=== PATIENT | female | born 1975 | race Caucasian/White ===

== ENCOUNTER 2024-01-16 21:10 | Emergency (ER) | payer BC, SELFPAY ==
--- NOTE | ~2024-01-16 | XR_ITS ---
EXAM: XR elbow RT min 3V, XR humerus RT DATE: 01/16/2024 23:38 HISTORY: R elbow pain swelling . COMPARISON: None available. FINDINGS: Normal mineralization. No fracture or dislocation. No lytic or blastic lesion. Minimal deg enerative change at the elbow joint. Medial epicondylar enthesopathy. No erosion or periosteal change . Subcutaneous stranding along the medial aspect of the elbow. IMPRESSION: No acute osseous finding in the right humerus or elbow. Reviewed, dictated and finalized at location K. IMPRESSION: No acute osseous finding in the right humerus or elbow.
--- NOTE | ~2024-01-16 | US_ITS ---
Duplex Sonography of the right upper extremity: Indication: DVT Sagittal and transverse B-mode images as well as color-flow imaging were performed on the right inter nal jugular, subclavian, axillary, brachial, basilic, radial, ulnar, and cephalic veins. B-mode exam ination was done without and with compression in the transverse plane. There is good visualization o f the internal jugular, subclavian, axillary, brachial, and basilic veins. There is thrombosis of the brachial, basilic, cephalic veins, with echogenic thrombus. These vessels demonstrate areas of noncompressibility and absent flow. There is additional thrombus in the radial a nd ulnar veins. Remaining visualized venous structures are patent, with normal flow and compressibility. Impression: Acute thrombosis involving the brachial, basilic, cephalic, radial, and ulnar veins. Reviewed, dictated and finalized at location . Impression: Acute thrombosis involving the brachial, basilic, cephalic, radial, and ulnar v eins.
[2024-01-16 21:14] VITALS: BP 189/87; PULSE 105; RESP 15; TEMP 36.6; O2SAT 100
[2024-01-17 03:51] VITALS: BP 176/79; PULSE 92; RESP 15; O2SAT 100
--- NOTE | 2024-01-17 04:28 | ED.EXTPRO ---
HPI - Extremity Problem General Chief complaint: Extremity Problem,Nontraumatic <Luis Enrique García MD - Last Filed: 01/17/24 07:14> Stated complaint: R ARM SWELLING,WARMTH <Luis Enrique García MD - Last Filed: 01/17/24 07:14> Time Seen by Provider: 01/17/24 04:07 <Luis Enrique García MD - Last Filed: 01/17/24 07:14> History of Present Illness HPI Narrative: 48-year-old female with history of hypertension presenting to the emergency department right elbow pain and swelling. She has not injured her have any kind of trauma but states that she thinks he might have developed tennis or golf elbow number passive extremity. She does that she has some swelling and warmth medial to the elbow on the inner arm of the right upper extremity. Does not remitted any trauma or bug bites. It has been warm without any drainage. No systemic features such as fever, chills, cough or trouble breathing, chest pain. She was concerned that she could have developed a blood clot. No history of DVT or PE. Not on any blood thinner medications. Previously healthy. <Luis Enrique García MD - Last Filed: 01/17/24 07:14> Related Data Home medications: Home Medications Medication Instructions Recorded Confirmed cetirizine 10 mg tablet (Zyrtec) 10 mg PO DAILY 03/19/19 09/14/22 levonorgestrel 0.15 mg-ethinyl 1 tablet PO DAILY 09/11/20 09/14/22 estradiol 30 mcg tablets,3 mos pack(91) <Luis Enrique García MD - Last Filed: 01/17/24 07:14> Allergies/Adverse reactions: Allergies Allergy/AdvReac Type Severity Reaction Status Date / Time No Known Allergies Allergy Verified 09/13/23 10:19 <Luis Enrique García MD - Last Filed: 01/17/24 07:14> Review of Systems Review of Systems: As reviewed above in HPI <Luis Enrique García MD - Last Filed: 01/17/24 07:14> FOR[facility]LY [facility], [facility] Past Medical History Medical History: Medical History (Updated 01/17/24 @ 08:21 by Kathleen Dudley MD) Anxiety Current mild episode of major depressive disorder without prior episode Encounter for monitoring diuretic therapy Essential (primary) hypertension Gastroesophageal reflux disease without esophagitis H/O motion sickness <Luis Enrique García MD - Last Filed: 01/17/24 07:14> Family History Family History: Family History (Updated 01/17/24 @ 08:31 by Kathleen Dudley MD) Father , due to VTE Hypertension VTE (venous thromboembolism) Mother Hypertension Grandparent Hypertension <Luis Enrique García MD - Last Filed: 01/17/24 07:14> Social History Social History: Social History Smoking status: Never smoker Second hand tobacco smoke exposure: No Alcohol intake: never Substance use: never Substance use type: does not use Lack of Transportation: No Lack of Food: Never True Current Housing: I Have Housing Concerned About Future Housing: No Difficulty Paying Gas/Electric Bills: No Difficulty Paying for Meds: No Currently Unemployed: No Education: Bachelor's Degree Difficulty w/ Childcare or Family Care: No Living arrangements: alone Occupation/Education: occupation Additional occupation/education comments: landscaper Gender identity (if verbalized by the patient): Female Spiritual care concerns: No Agree to blood products: No <Luis Enrique García MD - Last Filed: 01/17/24 07:14> Exam Narrative: GENERAL: [Well-appearing, well-nourished, and in no acute distress.] HEAD: [Normocephalic, atraumatic.] EYES: [PERRLA and EOMI.] ENT: Nares clear, no rhinorrhea or epistaxis. Mucous membranes moist. NECK: Supple. CHEST: [Clear to auscultation. No respiratory distress.] HEART: [Regular rate and rhythm]. No murmur heard. [Normal peripheral pulses.] ABDOMEN: [Soft, nondistended], [nontender], [No rigidity or guarding] EXTREMITIES: The i
[2024-01-17 05:07] LABS: Basophils Percent Auto 0.4 % (0.2-1.2); Eosinophils Absolute Auto 0.2 K/mm3 (0-0.3); Eosinophils Percent Auto 1.4 % (0-4.4); Hematocrit 28.8 % (37.0-47.0); Hemoglobin 7.8 g/dL (12.0-15.0); Immature Granulocyte Absolute 0.05 K/mm3 (0.00-0.031); Immature Granulocyte Percent A 0.4 % (0-0.5); Lymphocytes Absolute Auto 1.76 K/mm3 (0.9-3.2); Lymphocytes Percent Auto 15.5 % (18.3-44.2); Mean Corpuscular HGB Conc 27.1 g/dl (32-36); Mean Corpuscular Hemoglobin 17.4 pg (26-34); Mean Corpuscular Volume 64.4 fl (80-100); Mean Platelet Volume 9.5 fl (7.4-10.4); Monocytes Absolute Auto 0.9 K/mm3 (0.1-0.6); Monocytes Percent Auto 7.6 % (2.6-8.5); Neutrophils Absolute Auto 8.5 K/mm3 (1.3-6.7); Neutrophils Percent Auto 74.7 % (45.5-73.1); Platelet Count Result 461 k/mm3 (150-375); Red Blood Count 4.47 M/mm3 (4.2-5.4); Red Cell Distribution Width 20.8 % (11.5-14.5); White Blood Count 11.4 K/mm3 (4.5-10.0)
[2024-01-17 05:24] LABS: D Dimer 1.45 ug/mL (<0.48)
[2024-01-17 05:29] LABS: Anion Gap 13 mmol/L (4-12); Blood Urea Nitrogen 15 mg/dL (7-17); Calcium 9.2 mg/dL (8.4-10.2); Carbon Dioxide 22 mmol/L (22-30); Chloride 100 mmol/L (98-107); Estimated CRCL calculation 104 ml/min; Estimated Glomerular Filt Rate > 60; Glucose 118 mg/dL (65-110); Potassium 4.1 mmol/L (3.4-5.0); Sodium 135 mmol/L (137-145)
[2024-01-17 05:32] LABS: CRP 5.1 mg/dL (<1.0)
[2024-01-17 05:52] LABS: Platelet Estimate Increased (Adequate)
[2024-01-17 05:53] LABS: Anisocytosis 1+; Erythrocyte Sedimentation Rate 82 mm/hr (0-20); Ovalocytes 1+; Schistocytes None Seen
--- NOTE | 2024-01-17 07:20 | PC.NURSE ---
Assumed care of pt. pt right with edema & tenderness to A/C area that extends to bicep & lower arm. CMS intact. Pt rates pain 8, refusing any pain medication at this time. Continue to wait on US.
[2024-01-17] MEDS: RIVAROXABAN 15 MG TABLET PO (08:52)
[2024-01-17 08:55] VITALS: BP 169/86; PULSE 74; RESP 18; TEMP 36.6; O2SAT 98
--- NOTE | 2024-01-17 09:05 | PC.NURSE ---
pt refused pain med order. State she prefers not to take any pain meds at this time
== END 2024-01-17 09:06 | disposition home or self-care (01) ==
PROVIDERS: Emergency Provider Student in an Organized Health Care Education/Training Program; PCP Family Medicine
DX: I82.621 Acute embolism and thrombosis of deep veins of right upper extremity (principal); I10 Essential (primary) hypertension; K21.9 Gastro-esophageal reflux disease without esophagitis; F41.9 Anxiety disorder, unspecified; Z79.899 Other long term (current) drug therapy
CPT/HCPCS: 36415; 73060; 73080; 80048; 85025; 85380; 85652; 86140; 93971; 99284; A9270

== ENCOUNTER 2024-02-23 14:02 | Outpatient (CLI) | payer BC, SELFPAY ==
[2024-02-23 14:16] LABS: Basophils Absolute Auto 0.1 K/mm3 (0.0-0.1); Basophils Percent Auto 0.6 % (0.2-1.2); Eosinophils Absolute Auto 0.3 K/mm3 (0-0.3); Eosinophils Percent Auto 2.3 % (0-4.4); Hematocrit 34.9 % (37.0-47.0); Hemoglobin 9.6 g/dL (12.0-15.0); Immature Granulocyte Absolute 0.04 K/mm3 (0.00-0.031); Immature Granulocyte Percent A 0.3 % (0-0.5); Lymphocytes Absolute Auto 2.23 K/mm3 (0.9-3.2); Mean Corpuscular HGB Conc 27.5 g/dl (32-36); Mean Corpuscular Hemoglobin 19.1 pg (26-34); Mean Corpuscular Volume 69.5 fl (80-100); Mean Platelet Volume 9.5 fl (7.4-10.4); Monocytes Percent Auto 8.5 % (2.6-8.5); Neutrophils Absolute Auto 8.1 K/mm3 (1.3-6.7); Neutrophils Percent Auto 69.3 % (45.5-73.1); Platelet Count Result 405 k/mm3 (150-375); Red Blood Count 5.02 M/mm3 (4.2-5.4); Red Cell Distribution Width 22.6 % (11.5-14.5); White Blood Count 11.7 K/mm3 (4.5-10.0)
[2024-02-23 14:29] LABS: Anisocytosis 1+; Hypochromasia 1+; Microcytosis 1+ (NORMAL); Platelet Estimate Slightly Increased (Adequate); Schistocytes None Seen
[2024-02-23 18:34] LABS: Iron 101 ug/dL (37-170); Percent Iron Saturation 26 % (20-50)
[2024-02-23 18:36] LABS: Alanine Aminotransferase 86 U/L (6-35); Albumin Level 4.7 g/dL (3.5-5.1); Alkaline Phosphatase 191 U/L (38-126); Anion Gap 12 mmol/L (4-12); Aspartate Amino Transferase 51 U/L (14-36); Bilirubin,Total 0.4 mg/dL (0.2-1.3); Blood Urea Nitrogen 17 mg/dL (7-17); Calcium 10.1 mg/dL (8.4-10.2); Carbon Dioxide 28 mmol/L (22-30); Chloride 100 mmol/L (98-107); Estimated Glomerular Filt Rate > 60; Glucose 100 mg/dL (65-110); Potassium 3.6 mmol/L (3.4-5.0); Sodium 140 mmol/L (137-145)
[2024-02-23 18:59] LABS: Ferritin 8.19 ng/mL (11.1-264)
== END 2024-02-23 14:03 | disposition home or self-care (01) ==
LOC: ANHLAB 14:03
PROVIDERS: PCP Family Medicine; Visit Provider Internal Medicine Hematology & Oncology
DX: D64.9 Anemia, unspecified (principal)
CPT/HCPCS: 36415; 80053; 82607; 82728; 83540; 83550; 83921; 85025

== ENCOUNTER 2024-05-28 09:11 | Outpatient (CLI) | payer OTHER, SELFPAY ==
[2024-05-28 09:29] LABS: Hematocrit 40.8 % (37.0-47.0); Hemoglobin 12.4 g/dL (12.0-15.0); Mean Corpuscular HGB Conc 30.4 g/dl (32-36); Mean Corpuscular Hemoglobin 23.1 pg (26-34); Mean Corpuscular Volume 76.1 fl (80-100); Mean Platelet Volume 10.2 fl (7.4-10.4); Platelet Count Result 290 k/mm3 (150-375); Red Blood Count 5.36 M/mm3 (4.2-5.4); Red Cell Distribution Width 18.4 % (11.5-14.5); White Blood Count 9.2 K/mm3 (4.5-10.0)
--- OUTSIDE RECORDS SUMMARY | 2024-05-31 12:17 | XMS_ITS | Clinical Summary ---
Author Organization [facility] Address [address] [place] [address] Phone Care Team Providers Care Assembling Machine Operator Name Role Phone Jessica Smith MD Primary Care Provider [phone] Allergies No known active allergies Medications hydrochlorothiazide (MICROZIDE) 12.5 mg Oral capsuleIndications: Screening for malignant neoplasm of the cervix,Special screening examination for human papillomavirus (HPV) Take 12.5 mg by mouth daily. Daily Active CETIRIZINE HCL (ZYRTEC ORAL)Indications:Sc reening for malignant neoplasm of the cervix,Special screening examination for human papillomavirus (HPV) Take by mouth. Daily Active citalopram 20 mg tabletIndications:S creening for malignant neoplasm of the cervix,Special screening examination for human papillomavirus (HPV) Take 20 mg by mouth daily at bedtime. Daily Active atenolol (TENORMIN) 25 mg tablet 5 Active fluticasone (FLONASE) 50 mcg/spray [place], Suspension 5 Active buspirone HCl (BUSPIRONE ORAL) Take by mouth. Active pantoprazole 20 mg tablet,delayed release Take 20 mg by mouth daily. Active Xarelto 20 mg Tablet Take 20 mg by mouth daily. 4 Active topiramate (TOPAMAX) 25 mg tablet Take 25 mg by mouth. 4 Active eletriptan (RELPAX) 20 mg Tablet 4 Active Active Problems Problem Noted Date Diagnosed Date Unspecified essential hypertension 06/01/2011 Encounters Date Type Department Care Team Description 05/29/2024 Orders Only [facility] [address] [place] [address] Nelson Peoples MD 05/28/2024 10:00 AM RESIDENT CARE COORDINATOR Office Visit [facility] [address] [place] [address] Nelson Peoples MD Chronic anemia (Primary Dx) 04/26/2024 10:30 AM RESIDENT CARE COORDINATOR Office Visit [facility] ELECTRONIC DEVELOPMENT TECHNIC[facility] [address] [address] Adri Ace MD Well woman exam with routine gynecological exam (Primary Dx); Screening for cervical cancer; Special screening examination for human papillomavirus (HPV); Breast cancer screening by mammogram 04/26/2024 Abstract [facility] ELECTRONIC DEVELOPMENT TECHNICIAN [address] [address] Adri Ace MD 03/02/2024 Orders Only [facility] [address] [place] [address] Nelson Peoples MD 03/01/2024 4:30 PM CDT Telephone Check Up [facility] [address] [place] [address] Nelson Peoples MD Chronic anemia (Primary Dx); Acute deep vein thrombosis (DVT) of right upper extremity, unspecified vein (CMS/HCC) from Last 3 Months Family History Medical History Relation Name Comments No Known Problems Brother Hypertension Father Hypertension Mother Cancer Neg Hx Colon Cancer Neg Hx Ovarian Cancer Neg Hx Relation Name Status Comments Brother Alive Father Mother Alive Social History Tobacco Use Types Packs/Day Years Used Date Smoking Tobacco: Never Smokeless Tobacco: Never Tobacco Cessation:Counseling Given: Not Answered Alcohol Use Standard Drinks/Week Comments Yes 0 (1 standard drink = 0.6 oz pur e alcohol) Occasionally Comments No Sex and Gender Information Value Date Recorded Sex Assigned at Not on file Legal Sex Female 5:47 AM RESIDENT CARE COORDINATOR Gender Identity Not on file Sexual Orientation Not on file Occupation Industry Job Start Date Job End Date Not on file Not on file Not on file Not on file Last Filed Vital Signs Vital Sign Reading Time Taken Comments Blood Pressure 127/79 05/28/2024 9:46 AM RESIDENT CARE COORDINATOR Pulse 70 05/28/2024 9:46 AM RESIDENT CARE COORDINATOR Temperature 36.9 ??C (98.4 ??F) 05/28/2024 9:46 AM CS T Respiratory Rate 16 05/28/2024 9:46 AM RESIDENT CARE COORDINATOR Oxygen Saturation 97% 05/28/2024 9:46 AM RESIDENT CARE COORDINATOR Inhaled Oxygen Concentration - - Weight 99.9 kg (220 lb 3.2 oz) 05/28/2024 9:46 A M RESIDENT CARE COORDINATOR Height 162.6 cm (5' 4 ) 04/26/2024 10:04 AM RESIDENT CARE COORDINATOR Body Mass Index 37.8 04/26/2024 10:04 AM RESIDENT CARE COORDINATOR Plan of Treatment Upcoming Encounters Date Type Department Care Team (Late st Contact Info) Description 06/11/2024 4:30 PM RESIDENT CARE COORDINATOR Telephone Check Up [facility] [address] [place] [address] Nelson Peoples MD [address] [place] [address] [address] 07/31/2024 10:00 AM CDT Office Visit [facility] [address] [place] [address] Nelson Peoples MD [address] [facility] [address] [phone] 12/07/2024 1:00 PM CDT Appointment [facility] [place] [address] [place] [address] Adri Ace MD [address] [place] [address] Health Maintenance Due Date Last Done Comments Pre-Diabetes and Diabetes Screening 1973 DTAP/TDAP/TD VACCINES (1 - Tdap) 1992 HEPATITIS B VACCINES (1 of 3 - 19+ 3-dose series) 1992 COLORECTAL SCREENING 2018 Colorectal Cancer Screening 2018 FIT-DNA Q 3 years 2018 FIT/FOBT Q 1 year 2018 Flex Sig/CT Colonography Q 5 years 2018 ZOSTER VACCINE (1 of 2) 10/29/2023 CERVICAL CANCER SCREENING 11/12/20232022, 08/27/2020, 09/13/2017, Additional history exists BREAST CANCER SCREENING 12/21/2024 12/22/19, 11/11/2022, 11/03/2021, Additional history exists INFLUENZA VACCINE Completed 03/02/2024, 01/22/2020 Procedures Procedure Name Priority Date/Time Associated Diagnosis Comments CBC WITH DIFFERENTIAL Routine 05/28/2024 11:25 AM RESIDENT CARE COORDINATOR VITAMIN B12 AND FOLATE Routine 05/24/2024 7:46 AM RESIDENT CARE COORDINATOR Chronic anemia IRON, TIBC, AND PERCENT SATURATION Routine 05/24/2024 7:46 AM RESIDENT CARE COORDINATOR Chronic anemia FERRITIN Routine 05/24/2024 7:46 AM RESIDENT CARE COORDINATOR Chronic anemia METHYLMALONIC ACID Routine 03/01/2024 10 :27 AM CDT MAMMO 3D ENRRIQUE SCREEN BILAT W OR WO CAD Routine 12/22/2023 1:57 PM CDT Visit for screening mammogram CERV/VAG CYTO SCREEN PAP W/HPV Routine 11/11/2022 10:44 AM CDT Well woman exam with routine gynecological exam Screening for cervical cancer Special screening examination for human papillomavirus (HPV) from Last 3 Months or Most Recently Relevant to Health Maintenance Results * CBC WITH DIFFERENTIAL (05/28/2024 11:25 AM RESIDENT CARE COORDINATOR) Blood us Nelson Peoples MD HEMATOLOGY ORDERABLES Final Res ult * VITAMIN B12 AND FOLATE (05/24/2024 7:46 AM RESIDENT CARE COORDINATOR) Pathologist [facility] VITAMIN B12 725 200 - 1100 pg/mL [facility] FOLATE, SERUM 9.8 ng/mL [facility] Comment: ? Reference Range ? Low: ? <3.4 ? Borderline: ?3.4-5.4 ? Normal: ?>5.4 FASTING:YES FASTING: YES Test Performed at: [address] ??[phone] Elvie Cobian MD Blood 05/24/2024 7:46 AM RESIDENT CARE COORDINATOR 05/24/2024 7:46 AM RESIDENT CARE COORDINATOR us Nelson Peoples MD CHEMISTRY ORDERABLES Final Resu lt [facility] [phone] [address] * (ABNORMAL) IRON, TIBC, AND PERCENT SATURATION (05/24/2024 7:46 AM RESIDENT CARE COORDINATOR) Pathologist [facility] IRON 30(L) 45 - 160 mcg/dL [facility] TIBC 352 250 - 450 mcg/dL (calc) [facility] IRON % SATURATION 9(L) 16 - 45 % (calc) [facility] Comment: FASTING:YES FASTING: YES Test Performed at: [facility] ??[phone] Elvie Cobian MD Blood 05/24/2024 7:46 AM RESIDENT CARE COORDINATOR 05/24/2024 7:46 AM RESIDENT CARE COORDINATOR Nelson Peoplse MD CHEMISTRY ORDERABLES Final Resu lt Performing Organization Address City/[facility]/ZIP Co de Phone Number [facility] [phone] [address] * (ABNORMAL) FERRITIN (05/24/2024 7:46 AM RESIDENT CARE COORDINATOR) FERRITIN 15(L) 16 - 232 ng/mL [facility] Comment: Test Performed at: [facility] ??[phone] Elvie Cobian MD Blood 05/24/2024 7:46 AM RESIDENT CARE COORDINATOR 05/24/2024 7:46 AM RESIDENT CARE COORDINATOR Nelson Peoples MD CHEMISTRY ORDERABLES Final Resu lt Performing Organization Address [facility] Co de Phone Number [facility] [phone] [address] * METHYLMALONIC ACID (03/01/2024 10:27 AM CDT) Blood Nelson Peoples MD CHEMISTRY ORDERABLES Final Resu lt * MAMMO 3D ENRRIQUE SCREEN BILAT W OR WO CAD (12/22/2023 1:57 PM CDT) Anatomical Region Laterality Modality Breast Bilateral Mammography 12/22/2023 1:57 PM CDT Impressions 12/22/2023 5:44 PM CDT IMPRESSION: Normal screening mammogram. OVERALL FINAL ASSESSMENT: BI-RADS CATEGORY 1 - Negative Recommend annual screening mammography. DICTATION LOCATION: [facility] Narrative 12/22/2023 5:44 PM CDT EXAM: BILATERAL SCREENING DIGITAL MAMMOGRAM WITH 3D TOMOSYNTHESIS AND CAD DATE: 12/22/2023 1:57 PM INDICATION: Screening. COMPARISON STUDIES: ??11-11-22 through 08-27-20 ?? BREAST COMPOSITION: The breasts are almost entirely fatty. FINDINGS: There is no concerning mass, asymmetry, malignant microcalcification or area of architectural distortion in either breast. There is no change when compared to previous mammograms. Computer aided diagnosis was utilized. 3D tomosynthesis performed in 4 standard projections reveals no evidence of architectural distortion or mass. Procedure Note Doni Horne MD - 12/22/2023 EXAM: BILATERAL SCREENING DIGITAL MAMMOGRAM WITH 3D TOMOSYNTHESIS AND CAD DATE: 12/22/2023 1:57 PM INDICATION: Screening. COMPARISON STUDIES: 11-11-22 through 08-27-20 BREAST COMPOSITION: The breasts are almost entirely fatty. FINDINGS: There is no concerning mass, asymmetry, malignant microcalcification or area of architectural distortion in either breast. There is no change when compared to previous mammograms. Computer aided diagnosis was utilized. 3D tomosynthesis performed in 4 standard projections reveals no evidence of architectural distortion or mass. IMPRESSION: Normal screening mammogram. OVERALL FINAL ASSESSMENT: BI-RADS CATEGORY 1 - Negative Recommend annual screening mammography. DICTATION LOCATION: [facility] Jessica Smith MD MAMMO ORDERABLES Final Result * CERV/VAG CYTO SCREEN PAP W/HPV (11/11/2022 10:44 AM CDT) CLINICAL INFORMATION [facility] Comment:Routine exam LAST MENSTRUAL PERIOD [facility] Comment:NONE GIVEN PREV PAP: [facility] Comment:NIL 08/27/2020 PREV BX: [facility] Comment:NONE GIVEN SOURCE [facility] Comment:Endocervix ADEQUACY: [facility] Comment: Satisfactory for evaluation. Endocervical/transformation zone component present. Age and/or menstrual status not provided PAP INTERP [facility] Comment: Cytology Results: Negative for intraepithelial lesion or malignancy. COMMENT (PAP TEST) [facility] Comment: This Pap test has been evaluated with computer assisted technology. FIELD CONTACT PERSON: Rogelio Mercedes Comment: TJ, CT(ASCP) CT screening location: [place] [address] [place] [address] EXPLANATORY NOTE Que [employer] Mercedes Comment: EXPLANATORY NOTE: The Pap is a screening test for cervical cancer. It is not a diagnostic test and is subject to false negative and false positive results. It is most reliable when a satisfactory sample, regularly obtained, is submitted with relevant clinical findings and history, and when the Pap result is evaluated along with historic and current clinical information. HPV E6/E7 Not Detected Not Detected [facility] Comment: Methodology: Mushroom Cutter-Mediated Amplification This assay detects E6/E7 viral messenger RNA (mRNA) from 14 high-risk HPV types (16,18,31,33,35,39,45,51,52,56,58,59,66,68). Cervical sources are required for HPV testing. If a vaginal source from a patient who has had a total hysterectomy with removal of cervix was submitted, please contact the testing laboratory for alternative testing options. For additional information, please refer to http://education.[employer]/faq/PYI845w6 (This link if provided for information/ educational purposes only.) Test Performed at: [facility] [address] ??[phone] Elvie Cobian MD Genital SWAB OF ENDOCERVIX / Unknown 11/11/2022 10:44 AM CDT 11/11/2022 11:35 PM CDT Ardi Ace MD PATHOLOGY/CYTOLOGY ORDERA BLES Final Result [facility] [phone] [facility] [facility] [address] [address] from Last 3 Months or Most Recently Relevant to Health Maintenance Insurance [employer] CHOICE POS II Care Teams Assembling Machine Operator Relationship Specialty Start Date End Date Jessica Smith MD [address] [place] [address] PCP - General 01/30/09
--- OUTSIDE RECORDS SUMMARY | 2024-05-31 12:17 | XMS_ITS | Encounter Summary ---
Author Organization [facility] Address [address] [place] [address] Care Team Providers Care Press Manager Name Role Phone Jessica Smith MD Primary Care Provider [phone] Reason for Visit * Reason Comments Follow Up Encounter Details Date Type Department Care Team (Late st Contact Info) Description 05/28/2024 10:00 AM SUPERVISOR TUNNEL HEADING Office Visit [facility] Oncology and Hematology - Nick [address] [facility] [address] [place] [address] Nelson Peoples MD [address] [facility] [address] [place] [address] Chronic anemia (Primary Dx) Social History Tobacco Use Types Packs/Day Years Used Date Smoking Tobacco: Never Smokeless Tobacco: Never Tobacco Cessation:Counseling Given: Not Answered Alcohol Use Standard Drinks/Week Comments Yes 0 (1 standard drink = 0.6 oz pur e alcohol) Occasionally Comments No Sex and Gender Information Value Date Recorded Sex Assigned at Not on file Legal Sex Female 5:47 AM SUPERVISOR TUNNEL HEADING Gender Identity Not on file Sexual Orientation Not on file Occupation Industry Job Start Date Job End Date Not on file Not on file Not on file Not on file documented as of this encounter Last Filed Vital Signs Vital Sign Reading Time Taken Comments Blood Pressure 127/79 05/28/2024 9:46 AM SUPERVISOR TUNNEL HEADING Pulse 70 05/28/2024 9:46 AM SUPERVISOR TUNNEL HEADING Temperature 36.9 ??C (98.4 ??F) 05/28/2024 9:46 AM CS T Respiratory Rate 16 05/28/2024 9:46 AM SUPERVISOR TUNNEL HEADING Oxygen Saturation 97% 05/28/2024 9:46 AM SUPERVISOR TUNNEL HEADING Inhaled Oxygen Concentration - - Weight 99.9 kg (220 lb 3.2 oz) 05/28/2024 9:46 A M SUPERVISOR TUNNEL HEADING Height - - Body Mass Index 37.8 04/26/2024 10:04 AM SUPERVISOR TUNNEL HEADING documented in this encounter Progress Notes * Nelson Peoples MD - 05/28/2024 9:54 AM CST HEMATOLOGY / ONCOLOGY PROGRESS NOTE Patient Identification: Name: Joyce Delgado Age: 48 y.o. Sex: female : 1975 DIAGNOSIS Anemia secondary to iron and vitamin B12 deficiency Provoked right upper extremity DVT CURRENT TREATMENT Iron 45 mg twice a day with vitamin B12 1 mg daily TREATMENT HISTORY SUBJECTIVE Patient came to the office for follow-up visit. She is feeling much better and energetic. Denies any bleeding and bruising. No chest pain and shortness of breath. Weight and appetite stable. Review of system Constitutional: Patient did not mention fevers, sweats, denies any tiredness and fatigue, weight and appetite stable HEENT: Patient did not mention sinus congestion, hearing or vision problems Respiratory: Patient did not mention cough, dyspnea, wheeze Cardiovascular: Patient did not mention chest pain, exertional chest pressure/discomfort, nausea, syncope, shortness of breath GI: Patient did not mention constipation, diarrhea, dsyphagia, reflux symptoms, vomiting, melena : Patient did not mention dysuria, frequency, incontinence, urgency Integumentary system: no lymphadenopathy, sweats, flushing Musculoskeletal: Patient not mention: myalgia, arthralgia Neurological: Patient did not mention blurry or disturbed vision, numbness/weakness, dizziness Skin: No lumps, bumps or rashes. 12 point review of system was reviewed Objective: Vital signs in last 24 hours: As per nursing note Exam: General appearance: alert, cooperative, no distress, appears stated age Head: normocephalic, without obvious abnormality, atraumatic Eyes: conjunctivae/corneas clear, EOM's intact Ears: normal external ear canals AU Nose: Nares normal. Septum midline. Mucosa normal. No drainage or sinus tenderness Throat: Lips, mucosa, and tongue normal. Teeth and gums normal Neck: supple, symmetrical, trachea midline. Lungs: clear to auscultation bilaterally Heart: regular rate and rhythm, S1, S2 normal, no murmur, click, rub or gallop Abdomen: soft, non-tender. Bowel sounds normal. No masses, No organomegaly Extremities: extremities normal, atraumatic, no cyanosis or edema Skin: Skin color, texture, turgor normal. No rashes or lesions Lymph nodes: No lymphadenopathy Neuro: No obvious focal deficit Exam as above PATH LABS Labs from February 22 showed hemoglobin 9.6 vitamin B12 665 iron 101 saturation 26 ferritin 8.1 Labs from May 25 showed ferritin 15 iron 30 saturation 9 B12 725 hemoglobin 12.4 Assessment: Plan: Patient Active Problem List Diagnosis Date Noted Unspecified essential hypertension 06/01/2011 Iron deficiency anemia. Labs reviewed. Hemoglobin has improved but the iron level remains low. Patient will continue iron 45 mg twice a day along with vitamin C 500 mg daily. I will repeat labs againin 2 months. No need for iron infusion at this time. Vitamin B12 deficiency. B12 level stable. Continue vitamin B12 1 mg daily. Provoked right upper extremity DVT while she was on the control pills. control pill hasbeen discontinued. Continue anticoagulation. Doppler study will be done in 1 week and phone visit in 2 weeks. Hypercoagulable workup will be done after Doppler studies. Hypertension. Stable. 05/28/2024 Nelson Peoples MD RVISOR TUNNEL HEADING documented in this encounter Plan of Treatment Upcoming Encounters Date Type Department Care Team (Late st Contact Info) Description 06/11/2024 4:30 PM SUPERVISOR TUNNEL HEADING Telephone Check Up [facility] Oncology and Hematology - Nick [address] [place] [address] Nelson Peoples MD [address] [place] [address] 07/31/2024 10:00 AM CDT Office Visit [facility] Oncology and Hematology - Nick [address] [place] [address] Nelson Peoples MD [address] [place] [address] 12/07/2024 1:[address] [facility] A [address] [place] [address] Adri Ace MD [address] [facility] [address] [address] Scheduled Orders Name Type Priority Associated Diagnoses Orde r Schedule CBC WITHOUT DIFFERENTIAL Lab Stat Chronic anemia Expected: 07/23/2024, Expires: 05/28/2025 FERRITIN Lab Routine Chronic anemia Expected: 07/23/2024, Expires: 05/28/2025 IRON, TIBC, AND PERCENT SATURATION Lab Routine Chronic anemia Expected: 07/23/2024, Expires: 05/28/2025 VITAMIN B12 AND FOLATE Lab Routine Chronic anemia Expected: 07/23/2024, Expires: 05/28/2025 documented as of this encounter Visit Diagnoses Diagnosis Chronic anemia- Primary Anemia, unspecified documented in this encounter Care Teams Press Manager Relationship Specialty Start Date End Date Jessica Smith MD [address] [place] [phone] PCP - General 01/30/09 documented as of this encounter
== END 2024-05-28 09:12 | disposition home or self-care (01) ==
LOC: ANHLAB 09:13
PROVIDERS: PCP Family Medicine; Visit Provider Internal Medicine Hematology & Oncology
DX: D64.9 Anemia, unspecified (principal)
CPT/HCPCS: 36415; 85027

== ENCOUNTER 2024-06-04 09:23 | Outpatient (CLI) | payer OTHER, SELFPAY ==
--- NOTE | ~2024-06-04 | US_ITS ---
EXAMINATION: US venous doppler UE RT DATE: 06/04/2024 10:02 INDICATION: History of DVT. TECHNIQUE: Antunez scale images with and without compression and Doppler images of the right upper extre mity veins were obtained. COMPARISON: Ultrasound dated 01/17/2024. FINDINGS: The right internal jugular vein, subclavian vein, axillary vein, brachial veins, basilic vein, cephal ic vein, radial vein, and ulnar vein are patent. IMPRESSION: 1. Patent right upper extremity veins. No evidence of deep venous thrombosis. Reviewed, dictated and finalized at location A. GRITY DIRECTOR
--- OUTSIDE RECORDS SUMMARY | 2024-06-04 09:59 | XMS_ITS | Clinical Summary ---
Author Organization [facility] Address [address] [place] [address] Phone Care Team Providers Care Home Health Lvn Name Role Phone Jessica Smith MD Primary Care Provider [phone] Allergies No known active allergies Medications hydrochlorothiazide [...] tablet 5 Active fluticasone (FLONASE) 50 mcg/spray [place], Suspension 5 Active buspirone HCl (BUSPIRONE ORAL) [...] Encounters Date Type Department Care Team Description 05/31/2024 External Device Data STL ABSTRACTION Provider, Abstract 05/29/2024 Orders Only [facility] Oncology and Hematology [facility] [address] [place] [address] Nelson Peoples MD 05/28/2024 10:00 AM SLIDE FORMING MACHINE OPERATOR Office Visit [facility] Oncology and Hematology [facility] [address] [place] [address] Nelson Peoples MD Chronic anemia (Primary Dx) 04/26/2024 10:30 AM SLIDE FORMING MACHINE OPERATOR Office Visit [facility] CARE AIDE - [address] [address] Adri Ace MD Well woman exam with routine gynecological exam (Primary Dx); Screening for cervical cancer; Special screening examination for human papillomavirus (HPV); Breast cancer screening by mammogram 04/26/2024 Abstract [facility] CARE AIDE - [address] [address] Adri Ace MD from Last 3 Months Family History Medical [...] on file Legal Sex Female 5:47 AM SLIDE FORMING MACHINE OPERATOR Gender Identity Not on file Sexual Orientation Not on file Occupation Industry Job Start Date Job End Date Not on file Not on file Not on file Not on file Last Filed Vital Signs Vital Sign Reading Time Taken Comments Blood Pressure 127/79 05/28/2024 9:46 AM SLIDE FORMING MACHINE OPERATOR Pulse 70 05/28/2024 9:46 AM SLIDE FORMING MACHINE OPERATOR Temperature 36.9 ??C (98.4 ??F) 05/28/2024 9:46 AM CS T Respiratory Rate 16 05/28/2024 9:46 AM SLIDE FORMING MACHINE OPERATOR Oxygen Saturation 97% 05/28/2024 9:46 AM SLIDE FORMING MACHINE OPERATOR Inhaled Oxygen Concentration - - Weight 99.9 kg (220 lb 3.2 oz) 05/28/2024 9:46 A M SLIDE FORMING MACHINE OPERATOR Height 162.6 cm (5' 4 ) 04/26/2024 10:04 AM SLIDE FORMING MACHINE OPERATOR Body Mass Index 37.8 04/26/2024 10:04 AM SLIDE FORMING MACHINE OPERATOR Plan of Treatment Upcoming Encounters Date Type Department Care Team (Late st Contact Info) Description 06/11/2024 4:30 PM SLIDE FORMING MACHINE OPERATOR Telephone Check Up [facility] Oncology and Hematology [facility] [address] [place] [address] Nelson Peoples MD [address] [place] [phone] 07/31/2024 10:00 AM CDT Office Visit [facility] Oncology [facility] [address] [place] [address] Nelson Peoples MD [address] [place] [address] 12/07/2024 1:00 PM CDT Appointment [facility] A [address] [place] [address] Adri Ace MD [address] [facility] [address] [phone] Health Maintenance Due Date Last Done Comments [...] Additional history exists BREAST CANCER SCREENING 12/21/2024 12/22/19 24, 11/11/2022, 11/03/2021, Additional history exists INFLUENZA VACCINE Completed 03/02/2024, 01/22/2020 Procedures Procedure Name Priority Date/Time Associated Diagnosis Comments CBC WITH DIFFERENTIAL Routine 05/28/2024 11:25 AM SLIDE FORMING MACHINE OPERATOR VITAMIN B12 AND FOLATE Routine 05/24/2024 7:46 AM SLIDE FORMING MACHINE OPERATOR Chronic anemia IRON, TIBC, AND PERCENT SATURATION Routine 05/24/2024 7:46 AM SLIDE FORMING MACHINE OPERATOR Chronic anemia FERRITIN Routine 05/24/2024 7:46 AM SLIDE FORMING MACHINE OPERATOR Chronic anemia MAMMO 3D ENRRIQUE SCREEN BILAT W OR [...] * CBC WITH DIFFERENTIAL (05/28/2024 11:25 AM SLIDE FORMING MACHINE OPERATOR) Blood us Nelson Peoples MD HEMATOLOGY ORDERABLES Final Res ult * VITAMIN B12 AND FOLATE (05/24/2024 7:46 AM SLIDE FORMING MACHINE OPERATOR) VITAMIN B12 725 200 - 1100 pg/mL [facility] FOLATE, SERUM 9.8 ng/mL [facility] Comment: ? Reference Range ? Low: ? <3.4 ? Borderline: ?3.4-5.4 ? Normal: ?>5.4 FASTING:YES FASTING: YES Test Performed at: [facility] ??[phone] Elvie Cobian MD Blood 05/24/2024 7:46 AM SLIDE FORMING MACHINE OPERATOR 05/24/2024 7:46 AM SLIDE FORMING MACHINE OPERATOR Nelson Peoples MD CHEMISTRY ORDERABLES Final Resu lt Performing Organization Address [facility] de Phone Number [facility] [phone] [facility] [employer] [address] * (ABNORMAL) IRON, TIBC, AND PERCENT SATURATION (05/24/2024 7:46 AM SLIDE FORMING MACHINE OPERATOR) IRON 30(L) 45 - 160 mcg/dL [facility] TIBC 352 250 - 450 mcg/dL (calc) [facility] IRON % SATURATION 9(L) 16 - 45 % (calc) [facility] Comment: FASTING:YES FASTING: YES Test Performed at: [employer] ??[phone] Elvie Cobian MD Blood 05/24/2024 7:46 AM SLIDE FORMING MACHINE OPERATOR 05/24/2024 7:46 AM SLIDE FORMING MACHINE OPERATOR Nelson Peoples MD CHEMISTRY ORDERABLES Final Resu lt Performing Organization Address [facility]/ZIP Co de Phone Number [facility] [phone] [facility] [employer] [address] * (ABNORMAL) FERRITIN (05/24/2024 7:46 AM SLIDE FORMING MACHINE OPERATOR) FERRITIN 15(L) 16 - 232 ng/mL [facility] Comment: Test Performed at: [facility] [address] [place], [place] ??[address] Elvie Cobian MD Blood 05/24/2024 7:46 AM SLIDE FORMING MACHINE OPERATOR 05/24/2024 7:46 AM SLIDE FORMING MACHINE OPERATOR us Nelson Peoples MD CHEMISTRY ORDERABLES Final Resu lt [facility] [phone] [facility] [address] [place] [address] * MAMMO 3D ENRRIQUE SCREEN BILAT W OR WO CAD (12/22/2023 1:57 PM CDT) Anatomical Region Laterality Modality Breast Bilateral Mammography 12/22/2023 1:57 PM CDT Impressions 12/22/2023 5:44 PM CDT IMPRESSION: Normal screening mammogram. OVERALL FINAL ASSESSMENT: BI-RADS CATEGORY 1 - Negative Recommend annual screening mammography. DICTATION LOCATION: [facility] Narrative 12/22/2023 5:44 PM CDT EXAM: BILATERAL [...] Negative Recommend annual screening mammography. DICTATION LOCATION: [facility] Jessica Smith MD MAMMO ORDERABLES Final Result * CERV/VAG CYTO SCREEN PAP W/HPV (11/11/2022 10:44 AM CDT) CLINICAL INFORMATION [facility] Comment:Routine exam LAST MENSTRUAL PERIOD [facility] Comment:NONE GIVEN PREV PAP: [facility] Comment:NIL 08/27/2020 PREV BX: [facility] Comment:NONE GIVEN SOURCE [facility] Comment:Endocervix ADEQUACY: Eric [employer] [facility] Comment: Satisfactory for evaluation. Endocervical/transformation zone component present. Age and/or menstrual status not provided PAP INTERP [facility] Comment: Cytology Results: Negative for intraepithelial lesion or malignancy. COMMENT (PAP TEST) [facility] Comment: This Pap test has been evaluated with computer assisted technology. CT SCAN TECH: Rogelio Mercedes Comment: TJ, CT(ASCP) CT screening location: [place] [address] [place] [address] Jaleesa Mercedes Comment: EXPLANATORY NOTE: The Pap is [...] information. HPV E6/E7 Not Detected Not Detected [facility] Comment: Methodology: [employer] Consultant And Designer-Mediated Amplification This assay detects E6/E7 viral messenger RNA (mRNA) from 14 high-risk HPV types (16,18,31,33,35,39,45,51,52,56,58,59,66,68). Cervical sources are required for HPV testing. If a vaginal source from a patient who has had a total hysterectomy with removal of cervix was submitted, please contact the testing laboratory for alternative testing options. For additional information, please refer to http://education.Ogin/faq/VSI794i3 (This link if provided for information/ educational purposes only.) Test [facility] [address] [place], [place] ??[phone] Elvie Cobian MD SL Genital SWAB OF ENDOCERVIX / Unknown 11/11/2022 10:44 AM CDT 11/11/2022 11:35 PM CDT Adri Ace MD PATHOLOGY/CYTOLOGY ORDERA BLES Final Result [facility] [phone] [facility] [address] [place] [address] from Last 3 Months or Most Recently Relevant to Health Maintenance Insurance [employer] CHOICE POS II Care Teams Home Health Lvn Relationship Specialty Start Date End Date Jessica Smith MD [address] [place] [address] PCP - General 01/30/09
== END 2024-06-04 09:24 | disposition home or self-care (01) ==
LOC: ANHIMG 09:25
PROVIDERS: PCP Family Medicine; Visit Provider Internal Medicine Hematology & Oncology
DX: I82.621 Acute embolism and thrombosis of deep veins of right upper extremity (principal)
CPT/HCPCS: 93971

== ENCOUNTER 2025-01-11 14:12 | Outpatient (CLI) | payer OTHER, SELFPAY ==
--- OUTSIDE RECORDS SUMMARY | 2025-01-11 14:15 | XMS_ITS | Encounter Summary ---
Author Organization [facility] Address [address] [place] [address] Care Team Providers Care Prop Maker Name Role Phone Jessica Smith MD Primary Care Provider [phone] Encounter Details Date Type Department Care Team (Late Contact Info) Description 12/07/2024 Results Follow-Up [facility] VICE PRESIDENT FINANCIAL - [address] [address] Adri Ace MD [address] [address] MAMMO 3D ENRRIQUE SCREEN BILAT W OR WO CAD Social History Tobacco Use Types Packs/Day Years Used Date Smoking Tobacco: Never Smokeless Tobacco: Never Alcohol Use Standard Drinks/Week Comments Yes 0 (1 standard drink = 0.6 oz pur e alcohol) Occasionally Comments No Sex and Gender Information Value Date Recorded Sex Assigned at Not on file Legal Sex Female 5:47 AM PHONE BANKER Gender Identity Not on file Sexual Orientation Not on file Occupation Industry Job Start Date Job End Date Not on file Not on file Not on file Not on file documented as of this encounter Plan of Treatment Upcoming Encounters Date Type Department Care Team (Late st Contact Info) Description 02/01/2025 12:15 PM CDT Office Visit [facility] Oncology and Hematology - Nick [address] [place] [address] Nelson Peoples MD [address] [facility] [address] [place] [address] documented as of this encounter Visit Diagnoses Not on filedocumented in this encounter Care Teams Prop Maker Relationship Specialty Start Date End Date Jessica Smith MD [address] [place] [address] PCP - General 01/30/09 documented as of this encounter
--- OUTSIDE RECORDS SUMMARY | 2025-01-11 14:15 | XMS_ITS | Clinical Summary ---
Author Organization [facility] Address [address] [place] [address] Phone Care Team Providers Care Social Media Executive Name Role Phone Jessica Smith MD Primary Care Provider [phone] Allergies No known active allergies Medications hydrochlorothiazide [...] tablet 5 Active fluticasone (FLONASE) 50 mcg/spray [place], Suspension 5 Active buspirone HCl (BUSPIRONE ORAL) Take by mouth. Active pantoprazole 20 mg tablet,delayed release Take 20 mg by mouth daily. Active topiramate (TOPAMAX) 25 mg tablet Take 50 mg by mouth. 4 Active eletriptan (RELPAX) 20 mg Tablet 4 Active Eliquis 2.5 mg tablet TAKE 1 TABLET BY MOUTH TWICE DAILY 180 Tablet 3 5 Active Active Problems Problem Noted Date Diagnosed Date Unspecified essential hypertension 06/01/2011 Encounters Date Type Department Care Team Description 12/11/2024 External Device Data STL ABSTRACTION Provider, Abstract 12/07/2024 12:18 PM CDT - 12/07/2024 11:59 PM CDT Hospital Encounter [facility] [place] A [address] [place] [address] Adri Ace MD Discharge Disposition: Home or Self Care 12/07/2024 Results Follow-Up [facility] CHUCK SPLITTER - [address] [address] Adri Ace MD MAMMO 3D ENRRIQUE SCREEN BILAT W OR WO CAD 11/21/2024 External Device Data STL ABSTRACTION Provider, Abstract 11/21/2024 External Device Data STL ABSTRACTION Provider, Abstract 10/26/2024 Refill [facility] Oncology and Hematology - [address] [place] [address] Nelson Peoples MD 10/23/2024 External Device Data STL ABSTRACTION Provider, Abstract from Last 3 Months Family History Medical [...] on file Legal Sex Female 5:47 AM ROCK MASON Gender Identity Not on file Sexual Orientation Not on file Occupation Industry Job Start Date Job End Date Not on file Not on file Not on file Not on file Last Filed Vital Signs Vital Sign Reading Time Taken Comments Blood Pressure 129/75 09/14/2024 10:39 AM CDT Pulse 71 09/14/2024 10:39 AM CDT Temperature 36.7 C (98.1 F) 09/14/2024 10:39 AM CDT Respiratory Rate 15 09/14/2024 10:3 9 AM CDT Oxygen Saturation 96% 09/14/2024 10: 39 AM CDT Inhaled Oxygen Concentration - - Weight 101.1 kg (222 lb 12.8 oz) 2024 10:39 AM CDT Height 162.6 cm (5' 4) 04/26/2024 10:0 4 AM ROCK MASON Body Mass Index 38.24 04/26/2024 10:04 AM ROCK MASON Plan of Treatment Upcoming Encounters Date Type Department Care Team (Late st Contact Info) Description 02/01/2025 12:15 PM CDT Office Visit [facility] Oncology and Hematology [facility] [address] [facility] [address] [place] [address] Nelson Peoples MD [address] [facility] [address] [place] [address] Health Maintenance Due Date Last Done Comments Pre-Diabetes and Diabetes Screening 1973 DTAP/TDAP/TD VACCINES (1 - Tdap) 1992 HEPATITIS B VACCINES (1 of 3 - 19+ 3-dose series) 1992 COLORECTAL SCREENING 2018 Colorectal Cancer Screening 2018 FIT-DNA Q 3 years 2018 FIT/FOBT Q 1 year 2018 Flex Sig/CT Colonography Q 5 years 2018 ZOSTER VACCINE (1 of 2) 10/29/2023 CERVICAL CANCER SCREENING 11/12/2023 PAP SMEAR 11/12/2023 11/11/2022, 04/2 05/2020, 09/13/2017, Additional history exists INFLUENZA VACCINE (#1) 2024 03/02/2024, 2019 BREAST CANCER SCREENING 12/07/2025 12/08/19 25, 12/22/2023, 11/11/2022, Additional history exists HPV/Cotest (21-29) 11/12/2027 11/11/2022, 0 08/27/2020, 09/13/2017, Additional history exists HPV/Cotest (30-65) 11/12/2027 11/11/2022, 0 08/27/2020, 09/13/2017, Additional history exists Procedures Procedure Name Priority Date/Time Associated Diagnosis Comments MAMMO 3D ENRRIQUE SCREEN BILAT W OR WO CAD Routine 12/07/2024 12:35 PM CDT Breast cancer screening by mammogram CERV/VAG CYTO SCREEN PAP W/HPV Routine 11/11/2022 10:44 AM CDT Well woman exam with routine gynecological exam Screening for cervical cancer Special screening examination for human papillomavirus (HPV) from Last 3 Months or Most Recently Relevant to Health Maintenance Results * MAMMO 3D ENRRIQUE SCREEN BILAT W OR WO CAD (12/07/2024 12:35 PM CDT) Anatomical Region Laterality Modality Breast Bilateral Mammography 12/07/2024 12:3 5 PM CDT Impressions 12/07/2024 1:04 PM CDT IMPRESSION: 1. No concerning findings. OVERALL FINAL ASSESSMENT: BI-RADS CATEGORY 1: Negative. RECOMMENDATIONS: 1. Recommend annual mammography. DICTATION LOCATION: [facility] 12/07/2024 1:04 PM CDT BILATERAL SCREENING DIGITAL MAMMOGRAM WITH 3D TOMOSYNTHESIS AND CAD DATE: 12/07/2024 12:35 PM HISTORY: Routine yearly screening exam. TECHNIQUE: Low-dose full-field digital breast tomosynthesis examination was performed of both breasts with 2D and 3D acquisitions. CAD was utilized. COMPARISON: September 2019 through December 2023 BREAST COMPOSITION: The breasts are almost entirely fatty. FINDINGS: No concerning dominant masses, suspicious calcifications, parenchymal asymmetries or areas of architectural distortion are identified in either breast. Adri Ace MD MAMMO ORDERABLES Final Re sult * CERV/VAG CYTO SCREEN PAP W/HPV (11/11/2022 10:44 AM CDT) CLINICAL INFORMATION [facility] Comment:Routine exam LAST MENSTRUAL PERIOD [facility] Comment:NONE GIVEN PREV PAP: [facility] Comment:NIL 08/27/2020 PREV BX: [facility] Comment:NONE GIVEN SOURCE [facility] Comment:Endocervix ADEQUACY: [facility] Comment: Satisfactory for evaluation. Endocervical/transformation zone component present. Age and/or menstrual status not provided PAP INTERP [facility] Comment: Cytology Results: Negative for intraepithelial lesion or malignancy. COMMENT (PAP TEST) [facility] Comment: This Pap test has been evaluated with computer assisted technology. SURFACER OPERATOR: Rogelio est [facility]ale[facility] [place] Comment: TJ CT(ASCP) CT screening location: [place] [address] [place] [address] EXPLANATORY NOTE [facility] Comment: EXPLANATORY NOTE: The Pap is [...] information. HPV E6/E7 Not Detected Not Detected [facility] [place] Comment: Methodology: Quality Process Engineer-Mediated Amplification This assay detects E6/E7 viral messenger RNA (mRNA) from 14 high-risk HPV types (16,18,31,33,35,39,45,51,52,56,58,59,66,68). Cervical sources are required for HPV testing. If a vaginal source from a patient who has had a total hysterectomy with removal of cervix was submitted, please contact the testing laboratory for alternative testing options. For additional information, please refer to http://education.Red Ambiental/faq/YVL308n6 (This link if provided for information/ educational purposes only.) Test Performed at: [facility] [address] [place] [address] Elvie Cobian MD Genital SWAB OF ENDOCERVIX / Unknown 11/11/2022 10:44 AM CDT 11/11/2022 11:35 PM CDT us Adri Ace MD PATHOLOGY/CYTOLOGY ORDERA BLES Final Result [facility] [phone] [facility] [address] [place] [address] from Last 3 Months or Most Recently Relevant to Health Maintenance Insurance AETNA CHOICE POS II AETNA CHOICE POS II Care Teams Social Media Executive Relationship Specialty Start Date End Date Jessica Smith MD [address] [place] [address] PCP - General 01/30/09
== END 2025-01-11 14:13 | disposition home or self-care (01) ==
LOC: ANHAUDIO 14:13
PROVIDERS: PCP Family Medicine; Visit Provider Family Medicine
DX: H90.11 Conductive hearing loss, unilateral, right ear, with unrestricted hearing on the contralateral side (principal)
CPT/HCPCS: 92557; 92567

== ENCOUNTER 2025-02-01 11:33 | Outpatient (CLI) | payer OTHER, SELFPAY ==
--- OUTSIDE RECORDS SUMMARY | 2025-02-01 11:36 | XMS_ITS | Clinical Summary ---
Author Organization [facility] Address [address] [place] [address] Phone Care Team Providers Care Voice Over Artist Name Role Phone Jessica Smith MD Primary Care Provider [phone] Allergies No known active allergies Medications hydrochlorothiazide [...] tablet 5 Active fluticasone (FLONASE) 50 mcg/spray [place], Suspension 5 Active buspirone HCl (BUSPIRONE ORAL) [...] Encounters Date Type Department Care Team Description 01/31/2025 Telephone [facility] Oncology and Hematology - [address] [place] [address] Nelson Peoples MD labs for appt 01/23/2025 External Device Data STL ABSTRACTION Provider, Abstract 01/22/2025 External Device Data STL ABSTRACTION Provider, Abstract 12/11/2024 External Device Data STL ABSTRACTION Provider, Abstract 12/07/2024 12:18 PM CDT - 12/07/2024 11:59 PM CDT Hospital Encounter [facility] [place] A [address] [place] [address] Adri Ace MD Discharge Disposition: Home or Self Care 12/07/2024 Results Follow-Up [facility] MANAGER PSYCHIATRY - [address] [address] Adri Ace MD MAMMO 3D ENRRIQUE SCREEN [...] on file Legal Sex Female 5:47 AM CREATIVE GURU Gender Identity Not on file Sexual Orientation [...] cm (5' 4) 04/26/2024 10:0 4 AM CREATIVE GURU Body Mass Index 38.24 04/26/2024 10:04 AM CREATIVE GURU Plan of Treatment Upcoming Encounters Date Type Department Care Team (Late st Contact Info) Description 02/01/2025 12:15 PM CDT Office Visit [facility] Oncology and Hematology - [address] [facility] [address] [place] [address] Nelson Peoples MD [address] [facility] [address] [place] [address] Health Maintenance Due Date Last [...] Procedure Name Priority Date/Time Associated Diagnosis Comments HOMOCYSTEINE Routine 01/24/2025 7:56 AM CDT VITAMIN B12 AND FOLATE Routine 01/24/2025 7:56 AM CDT Chronic anemia IRON, TIBC, AND PERCENT SATURATION Routine 01/24/2025 7:56 AM CDT Chronic anemia FERRITIN Routine 01/24/2025 7:56 AM CDT Chronic anemia MAMMO 3D ENRRIQUE SCREEN BILAT W OR WO CAD Routine 12/07/2024 12:35 PM CDT Breast cancer screening by mammogram CERV/VAG CYTO SCREEN PAP W/HPV Routine 11/11/2022 10:44 AM CDT Well woman exam with routine gynecological exam Screening for cervical cancer Special screening examination for human papillomavirus (HPV) from Last 3 Months or Most Recently Relevant to Health Maintenance Results * VITAMIN B12 AND FOLATE (01/24/2025 7:56 AM CDT) VITAMIN B12 829 200 - 1100 pg/mL [facility] FOLATE, SERUM 14.7 ng/mL [facility] Comment: Reference Range Low: <3.4 Borderline: 3.4-5.4 Normal: >5.4 Test Performed at: [facility] [address] [place] [address] Elvie Cobian MD Blood 01/24/2025 7:56 AM CDT 01/24/2025 7:57 AM CDT us Nelson Peoples MD CHEMISTRY ORDERABLES Final Resu lt [facility] [phone] [facility] [address] [place] [address] * (ABNORMAL) IRON, TIBC, AND PERCENT SATURATION (01/24/2025 7:56 AM CDT) IRON 63 45 - 160 mcg/dL [facility] TIBC 228(L) 250 - 450 mcg/dL (calc) [facility] IRON % SATURATION 28 16 - 45 % (calc) [facility] Comment: Test Performed at: [facility] [address] [place] [address] Elvie Cobian MD Blood 01/24/2025 7:56 AM CDT 01/24/2025 7:57 AM CDT Nelson Peoples MD CHEMISTRY ORDERABLES Final Resu lt Performing Organization Address [facility] Co de Phone Number [facility] [phone] [facility] [address] * HOMOCYSTEINE (01/24/2025 7:56 AM CDT) HOMOCYSTEINE CARDIOVASCULAR 10.0 < or = 13.4 umol/L [facility] Comment: Homocysteine is increased by functional deficiency of folate or vitamin B12. Testing for methylmalonic acid differentiates between these deficiencies. Other causes of increased homocysteine include renal failure, folate antagonists such as methotrexate and phenytoin, and exposure to nitrous oxide. Nicolas Montes De Oca et al., Jessica Meat Counter Clerk Med. 1999;131(5):331-9. Test Performed at: [facility] [address] Elive Cobian MD 01/24/2025 7:56 AM CDT 01/24/2025 7:57 AM CDT Nelson Peoples MD CHEMISTRY ORDERABLES Final Resu lt Performing Organization Address [facility]/ZIP Co de Phone Number [facility] [phone] [facility] [address] * (ABNORMAL) FERRITIN (01/24/2025 7:56 AM CDT) FERRITIN 373(H) 16 - 232 ng/mL [facility] Comment: Test Performed at: [facility] [address] [place] [address] Elvie Cobian MD Blood 01/24/2025 7:56 AM CDT 01/24/2025 7:57 AM CDT Nelson Peoples MD CHEMISTRY ORDERABLES Final Resu lt [facility] [phone] [facility] [address] [place] [address] * MAMMO 3D ENRRIQUE SCREEN BILAT W OR WO CAD (12/07/2024 12:35 PM CDT) Anatomical Region Laterality Modality Breast Bilateral Mammography 12/07/2024 12:3 5 PM CDT Impressions 12/07/2024 1:04 PM CDT IMPRESSION: 1. No concerning findings. OVERALL FINAL ASSESSMENT: BI-RADS CATEGORY 1: Negative. RECOMMENDATIONS: 1. Recommend annual mammography. DICTATION LOCATION: [facility] Narrative 12/07/2024 1:04 PM CDT BILATERAL SCREENING DIGITAL [...] W/HPV (11/11/2022 10:44 AM CDT) CLINICAL INFORMATION [facility] Comment:Routine exam LAST MENSTRUAL PERIOD [facility] Comment:NONE GIVEN PREV PAP: [facility] Comment:NIL 08/27/2020 PREV BX: [facility] Comment:NONE GIVEN SOURCE [facility] Comment:Endocervix ADEQUACY: [facility] Comment: Satisfactory for evaluation. Endocervical/transformation zone component present. Age and/or menstrual status not provided PAP INTERP [facility] Comment: Cytology Results: Negative for intraepithelial lesion or malignancy. COMMENT (PAP TEST) [facility] Comment: This Pap test has been evaluated with computer assisted technology. CURTAIN CUTTER HAND: [facility] Comment: TJ, CT(ASCP) CT screening location: [place] [address] [place] [address] EXPLANATORY NOTE Que [facility] Comment: EXPLANATORY NOTE: The Pap is [...] information. HPV E6/E7 Not Detected Not Detected [facility] Comment: Methodology: Conveyor Operator-Mediated Amplification This assay detects E6/E7 viral messenger RNA (mRNA) from 14 high-risk HPV types (16,18,31,33,35,39,45,51,52,56,58,59,66,68). Cervical sources are required for HPV testing. If a vaginal source from a patient who has had a total hysterectomy with removal of cervix was submitted, please contact the testing laboratory for alternative testing options. For additional information, please refer to http://education.Ph[employer]/faq/WWC192m3 (This link if provided for information/ educational purposes only.) Test Performed at: [facility] [address] [place] [address] Elvie Cobian MD SL Genital SWAB OF ENDOCERVIX / Unknown 11/11/2022 10:44 AM CDT 11/11/2022 11:35 PM CDT us Adri Ace MD PATHOLOGY/CYTOLOGY ORDERA BLES Final Result [facility] [phone] [facility] [address] [address] from Last 3 Months or Most Recently Relevant to Health Maintenance Insurance AETNA CHOICE POS II AETNA CHOICE POS II Care Teams Voice Over Artist Relationship Specialty Start Date End Date Jessica Smith MD [address] [place] [address] PCP - General 01/30/09
--- OUTSIDE RECORDS SUMMARY | 2025-02-01 11:36 | XMS_ITS | Encounter Summary ---
Author Organization [facility] Address [address] [place] [address] Care Team Providers Care Whitewasher Name Role Phone Jessica Smith MD Primary Care Provider [phone] Reason for Visit * Reason Onset Date Comments labs for appt 01/31/2025 Encounter Details Date Type Department Care Team (Late st Contact Info) Description 01/31/2025 Telephone [facility] Oncology and Hematology - [address] [facility] [address] [place] [address] Nelson Peoples MD [address] [facility] [address] [place] [address] labs for appt Social History Tobacco Use Types Packs/Day Years Used Date Smoking Tobacco: Never Smokeless Tobacco: Never Alcohol Use Standard Drinks/Week Comments Yes 0 (1 standard drink = 0.6 oz pur e alcohol) Occasionally Comments No Sex and Gender Information Value Date Recorded Sex Assigned at Not on file Legal Sex Female 5:47 AM HEEL TURNER Gender Identity Not on file Sexual Orientation Not on file Occupation Industry Job Start Date Job End Date Not on file Not on file Not on file Not on file documented as of this encounter Miscellaneous Notes * Telephone Encounter - AmintaShameka byrd Rafael - 01/31/2025 8:41 AM CDT LVM for patient regarding labs for her appointment tomorrow. She got some labs done at [facility] but they did not draw a CBC, I left in the message that she could get it done 30 minutes prior to her appointment. I asked that she call the office back. documented in this encounter Plan of Treatment Upcoming Encounters Date Type Department Care Team (Late st Contact Info) Description 02/01/2025 12:15 PM CDT Office Visit [facility] Oncology and Hematology - [address] [facility] [address] [place] [address] Nelson Peoples MD [address] [facility] [address] [place] [address] documented as of this encounter Visit Diagnoses Not on filedocumented in this encounter Care Teams Whitewasher Relationship Specialty Start Date End Date Jessica Smith MD [address] [place] [address] PCP - General 01/30/09 documented as of this encounter
--- OUTSIDE RECORDS SUMMARY | 2025-02-01 11:36 | XMS_ITS | Encounter Summary ---
Author Organization [facility] Address [address] [place] [address] Care Team Providers Care Recreation Programmer Name Role Phone Jessica Smith MD Primary Care Provider [phone] Encounter Details Date Type Department Care Team (Late Contact Info) Description 12/07/2024 Results Follow-Up [facility] LIGHTING EQUIPMENT OPERATOR [address] [facility] [address] [address] Adri Ace MD [address] [facility] [address] [address] MAMMO 3D ENRRIQUE SCREEN BILAT W OR WO CAD Social History Tobacco Use Types Packs/Day Years Used Date Smoking Tobacco: Never Smokeless Tobacco: Never Alcohol Use Standard Drinks/Week Comments Yes 0 (1 standard drink = 0.6 oz pur e alcohol) Occasionally Comments No Sex and Gender Information Value Date Recorded Sex Assigned at Not on file Legal Sex Female 5:47 AM AUDIO VISUAL EQUIPMENT RENTAL CLERK Gender Identity Not on file Sexual Orientation Not on file Occupation Industry Job Start Date Job End Date Not on file Not on file Not on file Not on file documented as of this encounter Plan of Treatment Upcoming Encounters Date Type Department Care Team (Late st Contact Info) Description 02/01/2025 12:15 PM CDT Office Visit [facility] Oncology and Hematology - [address] [facility] [address] [place] [address] Nelson Peoples MD [address] [facility] [address] [place] [address] documented as of this encounter Visit Diagnoses Not on filedocumented in this encounter Care Teams Recreation Programmer Relationship Specialty Start Date End Date Jessica Smith MD [address] [place] [address] PCP - General 01/30/09 documented as of this encounter
[2025-02-01 11:43] LABS: Hematocrit 43.9 % (37.0-47.0); Hemoglobin 14.6 g/dL (12.0-15.0); Mean Corpuscular HGB Conc 33.3 g/dl (32-36); Mean Corpuscular Hemoglobin 29.3 pg (26-34); Mean Corpuscular Volume 88.2 fl (80-100); Platelet Count Result 289 k/mm3 (150-375); Red Blood Count 4.98 M/mm3 (4.2-5.4); White Blood Count 10.6 K/mm3 (4.5-10.0)
== END 2025-02-01 11:34 | disposition home or self-care (01) ==
LOC: ANHLAB 11:34
PROVIDERS: PCP Family Medicine; Visit Provider Internal Medicine Hematology & Oncology
DX: D64.9 Anemia, unspecified (principal)
CPT/HCPCS: 36415; 85027

== ENCOUNTER 2025-02-01 12:57 | Outpatient (CLI) | payer OTHER, SELFPAY ==
--- NOTE | ~2025-02-01 | US_ITS ---
EXAMINATION: US venous doppler [facility] DATE: 02/01/2025 13:37 INDICATION: Left arm swelling TECHNIQUE: Antunez scale images with and without compression and Doppler images of the left upper extremity veins were obtained. COMPARISON: None. FINDINGS: The left internal jugular vein, subclavian vein, axillary vein, brachial veins, basilic vein, cephalic vein, radial vein, and ulnar vein are patent. IMPRESSION: 1. Patent left upper extremity veins. No evidence of deep venous thrombosis. Reviewed, dictated and finalized at location O.
--- OUTSIDE RECORDS SUMMARY | 2025-02-01 12:15 | XMS_ITS | Encounter Summary ---
Author Organization [facility] Address [address] [place] [address] Care Team Providers Care Clerical Adviser Name Role Phone Jessica Smith MD Primary Care Provider [phone] Reason for Referral * Radiology Services (Urgent) - Open Specialty Diagnoses / Procedures Referred By Contnae t Referred To Contact Diagnoses Left arm swelling Procedures US DOPPLER VENOUS ARM LEFT Nelson Peoples MD [address] [employer] [address] [place] [address] Phone: tel: fax: [place] [phone] Referral ID Status Reason Start Date Expiration Date V isits Requested Visits Authorized [id number] Open ST[facility] CTS 02/01/2025 03/04/2026 1 1 Encounter Details Date Type Department Care Team (Late st Contact Info) Description 02/01/2025 12:15 PM CDT Office Visit [facility] Oncology and Hematology [facility] [address] [place] [address] Nelson Peoples MD [address] [employer] [address] [place] [address] Left arm swelling (Primary Dx); Chronic anemia Social History Tobacco Use Types Packs/Day Years Used Date Smoking Tobacco: Never Smokeless Tobacco: Never Tobacco Cessation:Counseling Given: Not Answered Alcohol Use Standard Drinks/Week Comments Yes 0 (1 standard drink = 0.6 oz pur e alcohol) Occasionally Comments No Sex and Gender Information Value Date Recorded Sex Assigned at Not on file Legal Sex Female 5:47 AM GARMENT SORTER Gender Identity Not on file Sexual Orientation Not on file Occupation Industry Job Start Date Job End Date Not on file Not on file Not on file Not on file documented as of this encounter Last Filed Vital Signs Vital Sign Reading Time Taken Comments Blood Pressure 127/87 02/01/2025 11:56 AM CDT Pulse 66 02/01/2025 11:56 AM CDT Temperature 36.7 C (98.1 F) 02/01/2025 11:56 AM CDT Respiratory Rate 15 02/01/2025 11:56 AM CDT Oxygen Saturation 97% 02/01/2025 11:56 AM CDT Inhaled Oxygen Concentration - - Weight 100.7 kg (222 lb) 02/01/2025 11:56 AM CDT Height - - Body Mass Index 38.11 04/26/2024 10:04 AM GARMENT SORTER documented in this encounter Plan of Treatment Upcoming Encounters Date Type Department Care Team (Late st Contact Info) Description 06/07/2025 11:30 AM GARMENT SORTER Office Visit [facility] Oncology and Hematology - Nick [address] [facility] [address] [place] [address] Nelson Peoples MD [address] [facility] [address] [place] [address] Scheduled Orders Name Type Priority Associated Diagnoses Orde r Schedule US DOPPLER VENOUS ARM LEFT Imaging Stat Left arm swelling Expected: 02/01/2025, Expires: 02/01/2026 CBC WITHOUT DIFFERENTIAL Lab Stat Chronic anemia Expected: 06/03/2025, Expires: 09/01/2025 FERRITIN Lab Routine Chronic anemia Expected: 06/03/2025, Expires: 09/01/2025 IRON, TIBC, AND PERCENT SATURATION Lab Routine Chronic anemia Expected: 06/03/2025, Expires: 09/01/2025 VITAMIN B12 AND FOLATE Lab Routine Chronic anemia Expected: 06/03/2025, Expires: 09/01/2025 HOMOCYSTEINE Lab Routine Chronic anemia Expected: 06/03/2025, Expires: 09/01/2025 documented as of this encounter Visit Diagnoses Diagnosis Left arm swelling- Primary Swelling of limb Chronic anemia Anemia, unspecified documented in this encounter Care Teams Clerical Adviser Relationship Specialty Start Date End Date Jessica Smith MD [address] [place] [address] PCP - General 01/30/09 documented as of this encounter
--- OUTSIDE RECORDS SUMMARY | 2025-02-01 13:03 | XMS_ITS | Encounter Summary ---
Author Organization [facility] Address [address] [place] [address] Care Team Providers Care Coal Chute Worker Name Role Phone Jessica Smith MD Primary Care Provider [phone] Encounter Details Date Type Department Care Team (Late Contact Info) Description 12/07/2024 Results Follow-Up [facility] COMMUNITY MENTAL HEALTH WORKER - [address] [facility] [address] [address] Adri Ace MD [address] [facility] [facility] [address] [facility] [address] [address] MAMMO 3D ENRRIQUE SCREEN BILAT W OR WO CAD Social History Tobacco Use Types Packs/Day Years Used Date Smoking Tobacco: Never Smokeless Tobacco: Never Alcohol Use Standard Drinks/Week Comments Yes 0 (1 standard drink = 0.6 oz pur e alcohol) Occasionally Comments No Sex and Gender Information Value Date Recorded Sex Assigned at Not on file Legal Sex Female 5:47 AM WATERPROOFING SUPERVISOR Gender Identity Not on file Sexual Orientation Not on file Occupation Industry Job Start Date Job End Date Not on file Not on file Not on file Not on file documented as of this encounter Plan of Treatment Upcoming Encounters Date Type Department Care Team (Late st Contact Info) Description 06/07/2025 11:30 AM WATERPROOFING SUPERVISOR Office Visit [facility] Oncology and Hematology - [place] [address] [facility] [address] [facility] [place] [address] Nelson Peoples MD [address] [facility] [address] [place] [address] documented as of this encounter Visit Diagnoses Not on filedocumented in this encounter Care Teams Coal Chute Worker Relationship Specialty Start Date End Date Jessica Smith MD [address] [place] [address] PCP - General 01/30/09 documented as of this encounter
--- OUTSIDE RECORDS SUMMARY | 2025-02-01 13:03 | XMS_ITS | Encounter Summary ---
Author Organization [facility] [employer] [facility] Address [address] [place] [address] Care Team Providers Care Education Specialist Name Role Phone Jessica Smith MD Primary Care Provider [phone] Reason for Visit * Reason Onset Date Comments labs for appt 01/31/2025 Encounter Details Date Type Department Care Team (Late st Contact Info) Description 01/31/2025 Telephone [facility] Oncology and Hematology - Nick [address] [facility] [address] [place] [address] Nelson Peoples MD [address] [facility] [address] [place] [address] labs for appt Social History Tobacco Use Types Packs/Day Years Used Date Smoking Tobacco: Never Smokeless Tobacco: Never Alcohol Use Standard Drinks/Week Comments Yes 0 (1 standard drink = 0.6 oz pur e alcohol) Occasionally Comments No Sex and Gender Information Value Date Recorded Sex Assigned at Not on file Legal Sex Female 5:47 AM VENDETTE Gender Identity Not on file Sexual Orientation [...] tomorrow. She got some labs done at [facility] but they did not draw a CBC, I left in the message that she could get it done 30 minutes prior to her appointment. I asked that she call the office back. documented in this encounter Plan of Treatment Upcoming Encounters Date Type Department Care Team (Late st Contact Info) Description 06/07/2025 11:30 AM VENDETTE Office Visit [facility] Oncology and Hematology - [place] [address] [facility] [address] [place] [address] Nelson Peoples MD [address] [facility] [address] [place] [address] documented as of this encounter Visit Diagnoses Not on filedocumented in this encounter Care Teams Education Specialist Relationship Specialty Start Date End Date Jessica Smith MD [address] [place] [address] PCP - General 01/30/09 documented as of this encounter
--- OUTSIDE RECORDS SUMMARY | 2025-02-01 13:03 | XMS_ITS | Clinical Summary ---
Author Organization [facility] Address [address] [place] [address] Phone Care Team Providers Care Garment Sewer Hand Name Role Phone Jessica Smith MD Primary Care Provider [phone] Allergies No known active allergies Medications hydrochlorothiazide [...] tablet 5 Active fluticasone (FLONASE) 50 mcg/spray [place], Suspension 5 Active buspirone HCl (BUSPIRONE ORAL) [...] Encounters Date Type Department Care Team Description 02/01/2025 12:15 PM CDT Office Visit [facility] Oncology and Hematology [facility] [address] [place] [address] Nelson Peoples MD Left arm swelling (Primary Dx); Chronic anemia 01/31/2025 Telephone [facility] Oncology and Hematology [facility] [address] [place] [address] Nelson Peoples MD labs for appt 01/23/2025 External Device Data STL ABSTRACTION Provider, Abstract 01/22/2025 External Device Data STL ABSTRACTION Provider, Abstract 12/11/2024 External Device Data STL ABSTRACTION Provider, Abstract 12/07/2024 12:18 PM CDT - 12/07/2024 11:59 PM CDT Hospital Encounter [facility] [address] [place] [address] Adri Ace MD Discharge Disposition: Home or Self Care 12/07/2024 Results Follow-Up [facility] SPRAY MIXER [address] [address] Adri Ace MD MAMMO 3D ENRRIQUE SCREEN [...] on file Legal Sex Female 5:47 AM ARMORED TRANSPORT SERVICE MANAGER Gender Identity Not on file Sexual Orientation [...] (222 lb) 02/01/2025 11:56 AM CDT Height 162.6 cm (5' 4) 04/26/2024 10:04 AM ARMORED TRANSPORT SERVICE MANAGER Body Mass Index 38.11 04/26/2024 10:04 AM ARMORED TRANSPORT SERVICE MANAGER Plan of Treatment Upcoming Encounters Date Type Department Care Team (Late st Contact Info) Description 06/07/2025 11:30 AM ARMORED TRANSPORT SERVICE MANAGER Office Visit [facility] Oncology and Hematology [facility] [address] [facility] [address] [place] [address] Nelson ePoples MD [address] [facility] [address] [place] [address] Health Maintenance Due Date Last [...] CANCER SCREENING 11/12/2023 PAP SMEAR 11/12/2023 11/11/2022, 04/05/2020, 09/13/2017, Additional history exists Preventative Visit- Commercial 05/09/2024 1 06/27/2023, 08/27/2020, 09/27/2019, Additional history exists INFLUENZA VACCINE (#1) 2024 03/02/2024, 2019 BREAST CANCER SCREENING 12/07/2025 12/08/19, 12/22/2023, 11/11/2022, Additional history exists HPV/Cotest (21-29) [...] VITAMIN B12 829 200 - 1100 pg/mL [facility] FOLATE, SERUM 14.7 ng/mL [facility] Comment: Reference Range Low: <3.4 Borderline: 3.4-5.4 Normal: >5.4 Test Performed at: [facility] [address] [place] [address] Elvie Cobian MD Blood 01/24/2025 7:56 AM CDT 01/24/2025 7:57 AM CDT Nelson Peoples MD CHEMISTRY ORDERABLES Final Resu lt Performing Organization Address City/[facility]/ZIP Co de Phone Number [facility] [phone] [address] * (ABNORMAL) IRON, TIBC, AND PERCENT SATURATION (01/24/2025 7:56 AM CDT) Pathologist [facility] IRON 63 45 - 160 mcg/dL [facility] TIBC 228(L) 250 - 450 mcg/dL (calc) [facility] IRON % SATURATION 28 16 - 45 % (calc) [facility] Comment: Test Performed at: [facility] [address] Elvie Cobian MD Blood 01/24/2025 7:56 AM CDT 01/24/2025 7:57 AM CDT Nelson Peoples MD CHEMISTRY ORDERABLES Final Resu lt Performing Organization Address City/[facility] Co de Phone Number [facility] [phone] [facility] [address] * HOMOCYSTEINE (01/24/2025 7:56 AM CDT) Pathologist [facility] HOMOCYSTEINE CARDIOVASCULAR 10.0 < or = 13.4 umol/L [facility] Comment: Homocysteine is increased by functional deficiency of folate or vitamin B12. Testing for methylmalonic acid differentiates between these deficiencies. Other causes of increased homocysteine include renal failure, folate antagonists such as methotrexate and phenytoin, and exposure to nitrous oxide. Nicolas Montes De Oca, et al., Jessica Human Resource Intern Med. 1999;131(5):331-9. Test Performed at: [facility] [address] Elvie Cobian MD 01/24/2025 7:56 AM CDT 01/24/2025 7:57 AM CDT Nelson Peoples MD CHEMISTRY ORDERABLES Final Resu lt Performing Organization Address City/[facility]/ZIP Co de Phone Number [facility] [phone] [facility] [address] [place] [address] * (ABNORMAL) FERRITIN (01/24/2025 7:56 AM CDT) FERRITIN 373(H) 16 - 232 ng/mL [facility] Comment: Test Performed at: [facility] [address] [place] [address] Elvie Cobian MD Blood 01/24/2025 7:56 AM CDT 01/24/2025 7:57 AM CDT Nelson Peoples MD CHEMISTRY ORDERABLES Final Resu lt Performing Organization Address [facility] Co de Phone Number [facility] [phone] [facility] [address] * MAMMO 3D ENRRIQUE SCREEN BILAT W OR WO CAD (12/07/2024 12:35 PM CDT) Anatomical Region Laterality Modality Breast Bilateral Mammography 12/07/2024 12:3 5 PM CDT Impressions 12/07/2024 1:04 PM CDT IMPRESSION: 1. No concerning findings. OVERALL FINAL ASSESSMENT: BI-RADS CATEGORY 1: Negative. RECOMMENDATIONS: 1. Recommend annual mammography. DICTATION LOCATION: [facility] Narrative 12/07/2024 1:04 PM CDT BILATERAL SCREENING [...] W/HPV (11/11/2022 10:44 AM CDT) CLINICAL INFORMATION [facility] Comment:Routine exam LAST MENSTRUAL PERIOD [facility] Comment:NONE GIVEN PREV PAP: [facility] Comment:NIL 08/27/2020 PREV BX: [facility] Comment:NONE GIVEN SOURCE [facility] Comment:Endocervix ADEQUACY: [facility] Comment: Satisfactory for evaluation. Endocervical/transformation zone component present. Age and/or menstrual status not provided PAP INTERP [facility] Comment: Cytology Results: Negative for intraepithelial lesion or malignancy. COMMENT (PAP TEST) Q [facility] Comment: This Pap test has been evaluated with computer assisted technology. INDUSTRIAL WASTE INSPECTOR: Rogelio est [facility] Comment: TJPORTIA(ASCP) CT screening location: [place] [address] [place] [address] EXPLANATORY NOTE Que [facility] Comment: EXPLANATORY NOTE: The Pap is [...] information. HPV E6/E7 Not Detected Not Detected [facility] Comment: Methodology: Business Consultant-Mediated Amplification This assay detects E6/E7 viral messenger RNA (mRNA) from 14 high-risk HPV types (16,18,31,33,35,39,45,51,52,56,58,59,66,68). Cervical sources are required for HPV testing. If a vaginal source from a patient who has had a total hysterectomy with removal of cervix was submitted, please contact the testing laboratory for alternative testing options. For additional information, please refer to http://education.[employer]/faq/JKZ399z6 (This link if provided for information/ educational purposes only.) Test Performed at: [facility] [address] [place] [address] Elvie MCCALL Genital SWAB OF ENDOCERVIX / Unknown 11/11/2022 10:44 AM CDT 11/11/2022 11:35 PM CDT us Adri Ace MD PATHOLOGY/CYTOLOGY ORDERA BLES Final Result [facility] [phone] [facility] [address] [place] [address] from Last 3 Months or Most Recently Relevant to Health Maintenance Insurance [employer] CHOICE POS II AETNA CHOICE POS II Care Teams Garment Sewer Hand Relationship Specialty Start Date End Date Jessica Smith MD [address] [place] [address] PCP - General 01/30/09
== END 2025-02-01 12:58 | disposition home or self-care (01) ==
PROVIDERS: PCP Family Medicine; Visit Provider Internal Medicine Hematology & Oncology
DX: M79.89 Other specified soft tissue disorders (principal)
CPT/HCPCS: 93971

== ENCOUNTER 2025-03-21 09:13 | Outpatient (CLI) | payer OTHER, SELFPAY ==
--- NOTE | ~2025-03-21 | CT_ITS ---
EXAMINATION: CT IAC/mastoids BI wo con DATE: 03/21/2025 09:45 INDICATION: Adequate retraction pocket of the tympanic membrane TECHNIQUE: Computed tomography (CT) of the temporal bones was performed without intravenous contrast. The dose-length product was 239.75 mGy-cm. COMPARISON: None FINDINGS: Visualized portion of brain is unremarkable. Orbits are normal. There is some fluid in the posterior most right ethmoid air cells. Paranasal sinuses are otherwise unremarkable. RIGHT TEMPORAL BONE: Right otomastoiditis effusion with complete opacification of the mastoid air cells and middle ear cavity. This surrounds the ossicular chain which appears to remain intact as well as filling Prussak's space. There is a smooth lateral margin which conforms to the contour of the tympanic membrane it from the normal patent more peripheral external auditory canal. There is however erosion of the scutum as well as extensive tegmental dehiscence which suggests possibility of associated cholesteatoma. The tegmental dehiscence extends along the roof as well as the lateral wall along side the venous sinus at the junction of the transverse and sigmoid sinuses. There is also dehiscence of the squamosal portion of the temporal bone overlying the lateral margin of the sinus. The density opacifying the middle ear cavity also extensive contact the oval window and the course of the facial nerve. The vestibule, cochlea, semicircular canals, internal auditory canal, vestibular aqueduct and jugular bulb are normal. LEFT TEMPORAL BONE: The external auditory canal, tympanic membrane, ossicles and scutum are normal. The mastoid air cells, middle ear cavity including Prussak's space are clear. The oval window, vestibule, cochlea, semicircular canals, internal auditory canal, vestibular aqueduct and course of the facial nerve are normal. The external auditory canal and jugular bulb are unremarkable. IMPRESSION: 1. Right mastoid effusion with complete opacification of the middle ear cavity and its recesses as well as of the mastoid air cells. There is erosion of the scutum as well as dehiscence of the superior and lateral wu of the tegmen tympani which suggests possible superimposed infection or cholesteatoma. Reviewed, dictated and finalized at location A. TECHNICIAN IMPRESSION: 1. Right mastoid effusion with complete opacification of the middle ear cavity and its recesses as well as of the mastoid air cells. There is erosion of the s cutum as well as dehiscence of the superior and lateral wu of the tegmen tym lupe which suggests possible superimposed infection or cholesteatoma.
== END 2025-03-21 09:14 | disposition home or self-care (01) ==
LOC: MICIMG 09:14
PROVIDERS: PCP Family Medicine; Visit Provider Otolaryngology
DX: H73.899 Other specified disorders of tympanic membrane, unspecified ear (principal)
CPT/HCPCS: 70480